=== PATIENT | female | born 1975 | race American Indian/Alaskan Native ===

== ENCOUNTER 2020-02-25 23:42 | Emergency (ER) | payer OTHER ==
[2020-02-26] MEDS ORDERED: hydrALAZINE 20 MG/1 ML INJ IM ONE (00:20)
[2020-02-26] MEDS ORDERED: cloNIDine 0.2 MG TAB PO ONE (00:33)
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
[2020-02-26 01:44] VITALS: BP 169/113
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
== END 2020-02-26 01:40 | disposition home or self-care (01) ==
LOC: ED 23:42
DX: I16.0 Hypertensive urgency (principal); F10.129 Alcohol abuse with intoxication, unspecified; F12.10 Cannabis abuse, uncomplicated; Z98.51 Tubal ligation status; Z98.890 Other specified postprocedural states; Z79.899 Other long term (current) drug therapy; V49.69XA Unspecified car occupant injured in collision with other motor vehicles in traffic accident, initial encounter; Y93.89 Activity, other specified; Y92.410 Unspecified street and highway as the place of occurrence of the external cause; Y99.8 Other external cause status
CPT/HCPCS: 71046; 72040; 99283; J0360